=== PATIENT | male | born 1955 | race Caucasian/White ===

== ENCOUNTER 2016-12-25 14:02 | Emergency (ER) | payer MEDICARE ==
--- NOTE | ~2016-12-25 | CT16 ---
[facility] A Service of [facility] RADIOLOGY TEXT RESULTS PATIENT: MODESTA GRACIA LOCATION: [facility] : 55 UNIT #: [id number] AGE: [address]: Kristina Romero MD SEX: M ORDER DR: [id number] [facility] [address] [place], [place] [address] [id number] E MR#: [id number] Acc #: [id number] NAME: MODESTA GRACIA. : 1955 SEX: M STUDY DATE/TIME: 12/25/2016 17:05 UNIT: [facility] ROOM: STUDY DESCRIPTION: CT Angio Chest for PE Attending Physician: Kristina Romero M.D. Referring Physician: Brayden Mata M.D. Ordering Physician: Kristina Romero M.D. Primary Care Physician: Brayden Mata M.D. MEDICAL IMAGING REPORT This report is preliminary unless electronic signature is present EXAM CT chest, PE protocol. DATE OF EXAM 12/25/2016 HISTORY Cough for a week, side pain, elevated D-dimer, pneumonia, hepatitis C. History of lung cancer. Right lung mass and fluid in lungs. COMMENT CT of the chest performed in the axial plane during the intravenous administration of 80 mL of Isovue-370. COMPARISON There is prior from 09/05/2013. TECHNIQUE NOTE: This CT exam was performed with one or more of the following radiation dose reduction techniques: automatic exposure control, adjustment of mA and/or kV according to patient size, and iterative reconstruction. FINDINGS There are postoperative changes to the right hemithorax consistent with lobectomy. Please correlate with the operative history. There is associated right hemithorax volume loss. No pulmonary embolism is seen. No thoracic aortic dissection. No pericardial effusion. No evidence for right heart strain. Pleural thickening likely to the postoperative right hemithorax, but no definite pleural effusion. Some parenchymal scarring noted right upper pole kidney. There is a small [facility] A Service of [facility] RADIOLOGY TEXT RESULTS PATIENT: MODESTA GRACIA LOCATION: [facility] : 55 UNIT #: [id number] AGE: [address]: Kristina Romero MD SEX: M ORDER DR: hiatal hernia present. Mediastinal structures are shifted towards the right, and I believe the patient had a right lower lobe lobectomy. There are prominent coronary artery calcifications and please correlate for clinical history of cardiac disease. The evaluation of the lung parenchyma shows abnormal nodular parenchymal densities with areas of interstitial thickening. One of the larger nodular densities posteromedial left base about 1.9 cm in dimension peripherally. Small nodular densities also at the periphery of the lingula and reticulonodular disease in the left lower lobe and to a lesser extent lingula also. Smaller amount of reticulonodular disease in the right lower lung in addition to the scarring. Changes in the left lower lobe could be infectious or inflammatory in etiology with both typical an atypical infectious entities possible. Unfortunately, in a patient with a history of known lung cancer and alternate consideration would be lymphangitic spread of malignancy. Consider restaging the patient. The chest CT from 2013 was obtained prior to surgery and treatment, and I do not have access to interval films elsewhere. Comparison to those films would be helpful. There are some small mediastinal lymph nodes AP window larger about 9 mm short-axis dimension slightly larger than on prior study. There are degenerative changes in the thoracic spine. Lungs are hyperinflated, otherwise. IMPRESSION 1. No evidence for pulmonary embolism, thoracic aortic dissection or pericardial effusion. No pneumothorax. No definite pleural effusion. 2. This patient has apparently had treatment of a right lower lobe lung cancer with lobectomy right lower lobe since the comparison study of 2012. I do not have access to any of the interval post-treatment imaging. Comparison to outside films recommended. 3. There are multiple noncalcified indistinct somewhat nodular densities in the left lower lobe and lingula peripherally with associated reticulonodular disease. These are new from the chest CT from 2013, and some major differential considerations would include both typical an atypical infectious or inflammatory disease or lymphangitic spread of malignancy in the setting of known lung cancer. I would suggest restaging the patient if this has not been recently performed elsewhere. 4. There is left hemithorax volume loss and shift of the mediastinum to the right side consistent with a lobectomy. There are some areas of reticulonodular change and parenchymal scarring at least in the right lung, but again comparison to the interval outside imaging is recommended to determine significance. 5. Small AP window lymph nodes, largest about 9 mm short-axis dimension slightly larger than on the study from 2013. STAT * RESULT [facility] A Service of [facility] RADIOLOGY TEXT RESULTS PATIENT: MODESTA GRACIA LOCATION: [facility] : 55 UNIT #: [id number] AGE: [address]: Kristina Romero MD SEX: M ORDER DR: Dictated by... Gertrude Porter M.D. THIS IS AN ELECTRONICALLY VERIFIED REPORT Gertrude Porter M.D. at 12/27/2016 7:44 AM STEPHIE/jeni TD: 12/25/2016 17:59 JOB #: [id number] MEDICAL IMAGING REPORT COPY
--- NOTE | ~2016-12-25 | CR72 ---
[facility] A Service of [facility] RADIOLOGY TEXT RESULTS PATIENT: MODESTA GRACIA LOCATION: [facility] : 55 UNIT #: [id number] AGE: [address]: Kristina Romero MD SEX: M ORDER DR: [id number] [facility] [address] [place], [place] [address] [id number] E MR#: [id number] Acc #: [id number] NAME: MODESTA GRACIA. : 1955 SEX: M STUDY DATE/TIME: 12/25/2016 13:33 UNIT: [facility] ROOM: STUDY DESCRIPTION: CR Chest Single View Portable Attending Physician: Kristina Romero M.D. Referring Physician: Brayden Mata M.D. Ordering Physician: Kristina Romero M.D. Primary Care Physician: Brayden Mata M.D. MEDICAL IMAGING REPORT This report is preliminary unless electronic signature is present EXAM Portable chest 12/25/2016 HISTORY 61-year-old male with shortness of air and cough for 2 weeks. Lung cancer with right lower lobe removal. COMPARISON Chest, 04/20/2016 FINDINGS Frontal chest demonstrates right-sided volume loss consistent with prior right lower lobectomy. There is mild right basilar atelectasis and some chronic-appearing right basilar pleural thickening. The left lung is clear. No pneumothorax. Heart size and mediastinum are within normal limits. Pulmonary vasculature unremarkable. IMPRESSION Postsurgical changes from prior right lower lobectomy. Mild right basilar atelectasis with some chronic right basilar pleural thickening. No other acute chest findings. Dictated by... Silas Chan M.D. THIS IS AN ELECTRONICALLY VERIFIED REPORT Silas Chan M.D. at 12/27/2016 7:46 AM Juan FranciscoKB/to TD: 12/26/2016 12:24 JOB #: [id number] MEDICAL IMAGING REPORT [facility] A Service of [facility] RADIOLOGY TEXT RESULTS PATIENT: MODESTA GRACIA LOCATION: [facility] : 55 UNIT #: [id number] AGE: [address]: Kristina Romero MD SEX: M ORDER DR: [id number]
[~2016-12-25 14:02] MED LIST: ACETAMINOPHEN650 M2 PO; ACTOPLUS MET 151 TA2 PO; AMARYL PO; AMBIEN PO; AMOXICILLIN; ASPIRIN PO; ASPIRIN81 M2 PO; AUGMENTIN875 MG PO; COLACE PO; DULERA; DYMISTA NASAL S23 GM; HUMALOG100 U/ML SUBQ; LANTUS SOLOSTAR3 ML SQ; LANTUS100 U/ML INJ; LORTAB 10-5001 EACH PO; LORTAB PO; METFORMIN PO; MONTELUKAST SOD10 MG PO; MULTI VITAMIN1 EACH PO; MULTI-VITAMIN1 TAB PO; NATEGLINIDE120 MG PO; NOVOLIN R100 U/ML INJ; PANTOPRAZOLE SO40 MG; PERCOCET5/325 PO; VYTORIN 10-20 T1 TAB PO; VYTORIN 10-40 M1 TAB PO; XOPENEX HFA15 GM IN
[2016-12-25 14:07] LABS: BASOPHIL# 0.1 X10e3 (0-0.3); BASOPHIL% 0.8 % (0-2.5); EOSINOPHIL# 0.1 X10e3 (0-0.7); EOSINOPHIL% 0.7 % (0.0-7.0); HEMATOCRIT 35.7 % (38.0-50.0); HEMOGLOBIN 11.8 gm/dL (13.0-16.0); LYMPHOCYTE# 1.1 X10e3 (1.0-3.5); LYMPHOCYTE% 14.3 % (17.0-45.0); MEAN CELL VOLUME 88.4 FL (83-96); MEAN CORPUSCULAR HEMOGLOBIN 29.3 PG (28-34); MEAN CORPUSCULAR HGB CONC 33.2 g/dL (30-36); MEAN PLATELET VOLUME 7.2 FL (6.5-11.5); MONOCYTE# 0.7 X10e3 (0-1.0); NEUTROPHIL# 5.6 X10e3 (1.5-7.1); NEUTROPHIL% 75.2 % (40-75); PLATELET COUNT 322 X10e3 (140-420); RED BLOOD COUNT 4.04 X10e (3.90-5.60); RED CELL DISTRIBUTION WIDTH 14.4 % (11.0-15.5); WHITE BLOOD COUNT 7.4 X10e3 (4.0-10.5)
[2016-12-25 14:09] LABS: DIFF IND NO
[2016-12-25 14:40] LABS: BLOOD UREA NITROGEN 16 mg/dL (9-23); BUN/CREATININE RATIO 13.33; CALCIUM SERUM 9.6 mg/dL (8.4-10.2); CARBON DIOXIDE 27 mmol/L (22-31); CHLORIDE 104 mmol/L (100-111); CREATININE SERUM 1.2 mg/dL (0.6-1.4); GLOM FILT RATE Estimated ABOVE60 mL/min (>60); GLUCOSE FASTING 141 mg/dL (70-110); POTASSIUM 4.6 mmol/L (3.5-5.1); SODIUM 140 mmol/L (135-145)
== END 2016-12-25 18:40 | disposition home or self-care (01) ==
LOC: CED 14:02
PROVIDERS: Emergency Medicine
DX: J18.9 Pneumonia, unspecified organism (principal); F17.200 Nicotine dependence, unspecified, uncomplicated; Z98.890 Other specified postprocedural states
CPT/HCPCS: 36415; 71010; 71275; 80048; 85025; 85379; 94640; 96374; 99284; J2930; Q9967

== ENCOUNTER → 2017-02-10 | Outpatient (CLI) | payer MEDICARE ==
--- NOTE | ~2017-02-10 | CT57 ---
[facility] A Service of [facility] & [facility] RADIOLOGY TEXT RESULTS PATIENT: MODESTA GRACIA LOCATION: [facility] : 55 UNIT #: [id number] AGE: [address]: Chano Beckman MD SEX: M ORDER DR: [id number] [place] [id number] [facility] [place], [place] [address] [id number] O MR#: [id number] Acc #: [id number] NAME: MODESTA GRACIA. : 1955 SEX: M STUDY DATE/TIME: 02/10/2017 9:06 UNIT: [facility] ROOM: STUDY DESCRIPTION: CT Chest Wo Cont Attending Physician: Chano Beckman M.D. Referring Physician: Chano Beckman M.D. Ordering Physician: Chano Beckman M.D. Primary Care Physician: Brayden Mata M.D. MEDICAL IMAGING REPORT This report is preliminary unless electronic signature is present REVISED REPORT EXAM Chest CT no contrast 02/10/2017 INDICATIONS 61-year-old male with history of lung cancer. Followup. No current complaints. Lung cancer diagnosed in 2012 status post chemotherapy/radiation therapy. Observation for suspected malignant neoplasm, active malignancy. TECHNIQUE Noncontrast chest CT was performed and compared with 12/25/2016. This CT exam was performed with one or more of the following radiation dose reduction techniques: automatic exposure control, adjustment of mA and/or kV according to patient size, and iterative reconstruction. FINDINGS CT CHEST: There is persistent volume loss on the right and shift of mediastinal structures to the right secondary to lower lobectomy on the right. Postop changes in pleural thickening in the right lower lobe, not significantly changed for technical factors. Interval decreasing conspicuity of septal thickening in the right lower lobe and faint reticular nodular opacities in the right lower lobe which may be partly technical in nature given thinner slice selection on the current study. Similar improvement of reticular nodular opacities in the left lower lobe compared to the prior study. Interval decrease in probable atelectasis in the left lower lobe. Rounded opacity in the posteromedial left lower lobe abutting the posterior medial pleura, decreased in size and therefore, likely inflammatory or infectious. No new suspicious pulmonary nodule. There is old healed granulomatous disease. [facility]. [facility] A Service of [facility] RADIOLOGY TEXT RESULTS PATIENT: MODESTA GRACIA LOCATION: [facility] : 55 UNIT #: [id number] AGE: [address]: Chano Beckman MD SEX: M ORDER DR: Included thyroid unremarkable. No pericardial effusion. No axillary adenopathy. Aorta demonstrates no aneurysm. There is no mediastinal adenopathy. Included upper abdomen demonstrates granulomatous change of the spleen. No acute finding in the upper abdomen. Osseous structures demonstrate no suspicious bone lesion. IMPRESSION 1. Improved appearance of the lung bases. Reticular nodular opacities in both lower lobes have decreased in conspicuity and number. Improvement in lung aeration. No new suspicious pulmonary nodule or pleural effusion. 2. Postop changes with associated volume loss in the right lung appears stable. No new adenopathy. 3. Old healed granulomatous disease. Dictated by... Jac Romo M.D. THIS IS AN ELECTRONICALLY VERIFIED REPORT Jac Romo M.D. at 02/10/2017 5:32 PM [email or web address]/[email or web address] TD: 02/10/2017 15:31 JOB #: [id number] CC: Oscar/invision Please Delete MEDICAL IMAGING REPORT Page 1 of 1 COPY
== END | disposition home or self-care (01) ==
LOC: CCAT 08:40
DX: C34.90 Malignant neoplasm of unspecified part of unspecified bronchus or lung (principal); R91.8 Other nonspecific abnormal finding of lung field; Z98.890 Other specified postprocedural states
CPT/HCPCS: 71250